=== PATIENT | female | born 1985 | race Two or more races ===

== ENCOUNTER 2024-06-28 06:55 | Emergency (ER) | payer OTHER ==
[~2024-06-28] VITALS: Ht 157.5 cm; Wt 47.6 kg
== END 2024-06-28 07:58 | disposition home or self-care (01) ==
LOC: ER 06:57
DX: N94.6 Dysmenorrhea, unspecified (principal); R11.10 Vomiting, unspecified; Z88.5 Allergy status to narcotic agent; Z88.6 Allergy status to analgesic agent